=== PATIENT | female | born 1975 | race Caucasian/White ===

== ENCOUNTER 2016-12-16 09:41 | Day surgery (SDC) | payer SELFPAY ==
[~2016-12-16] VITALS: Ht 165.1 cm; Wt 103.4 kg
[~2016-12-16 09:41] MED LIST: ALBU17IN INH; VITA100066 PO
[2016-12-16] MEDS ORDERED: ACETAMINOPHEN 650 MG SUPP PR ONE (10:00)
[2016-12-16] MEDS ORDERED: LR 1,000 ML IV ONE (10:00)
[2016-12-16 10:17] LABS: MEAN CORPUSCULAR HEMOGLOBIN 30.2 pg (27.0-33.0); MEAN CORPUSCULAR VOLUME 91.4 fl (80.0-96.0); RED CELL DISTRIBUTION WIDTH 13.4 % (11.5-14.5); WHITE BLOOD COUNT 11.8 10^3/uL (4.0-10.0)
[2016-12-16 10:41] LABS: ANION GAP 5 MEQ/L (8-16); BLOOD UREA NITROGEN 8 MG/DL (7-18); CARBON DIOXIDE LEVEL 28 MEQ/L (21-32); CHLORIDE LEVEL 109 MEQ/L (98-107); CREATININE FOR GFR 0.92 MG/DL (0.55-1.02); GLOMERULAR FILTRATION RATE > 60.0 (>58); GLUCOSE, FASTING 121 MG/DL (70-105); POTASSIUM SERUM 4.1 MEQ/L (3.5-5.1); SODIUM LEVEL 142 MEQ/L (136-145)
[2016-12-16] MEDS ORDERED: ACETAMINOPHEN 650 MG SUPP As Ordered ONE (10:58)
[2016-12-16] MEDS ORDERED: METHYLENE BLUE 0.5% (5MG/ML) 10 ML AMP (PROVAYBLUE)(Q9968 PER 1MG) As Ordered ONE (10:58)
[2016-12-16] MEDS ORDERED: HYDROmorphone HCL 2 MG/ML 1ML VIAL (J1170) As Ordered ONE (11:55)
[2016-12-16] MEDS ORDERED: PROPOFOL 200 MG/20 ML VIAL As Ordered ONE ×2 (12:09→14:15)
[2016-12-16] MEDS ORDERED: LIDOCAINE 2% INJ 100 MG/5 ML SDV (FOR ANES.) As Ordered ONE (12:09)
[2016-12-16] MEDS ORDERED: fentaNYL 100 MCG/2 ML INJECTION (J3010) As Ordered ONE ×2 (12:09→14:17)
[2016-12-16] MEDS ORDERED: KETOROLAC 60 MG/2 ML VIAL (J1885) As Ordered ONE (12:09)
[2016-12-16] MEDS ORDERED: ROCURONIUM BROMIDE 50 MG/5 ML VIAL/SYRINGE As Ordered ONE (12:09)
[2016-12-16] MEDS ORDERED: dexameTHASONE 4 MG/ML 1ML VIAL (J1100) As Ordered ONE (12:09)
[2016-12-16] MEDS ORDERED: GLYCOPYRROLATE INJ 0.2 MG/ML 2 ML VIAL As Ordered ONE (12:19)
[2016-12-16] MEDS ORDERED: NEOSTIGMINE 10 MG/10 ML VIAL (J2710) As Ordered ONE (12:19)
[2016-12-16] MEDS ORDERED: PHENYLephrine HCL 500 MCG/5 ML (100MCG/ML) SYRINGE (J2370) As Ordered ONE (12:30)
[2016-12-16] MEDS ORDERED: IBUP80TA PO (14:44)
[2016-12-16] MEDS ORDERED: HYDROmorphone HCL 1 MG/ML SYRINGE (J1170) IV PRN (15:15)
[2016-12-16] MEDS ORDERED: LR 1,000 ML IV SCH (15:15)
[2016-12-16] MEDS ORDERED: fentaNYL 100 MCG/2 ML INJECTION (J3010) IV PRN (15:15)
[2016-12-16] MEDS ORDERED: PERCOCET 5MG/325MG TAB PO PRN ×2 (15:15)
[2016-12-16] MEDS ORDERED: ONDANSETRON 4MG/2ML VIAL (J2405) IV PRN (15:15)
[2016-12-16] MEDS ORDERED: METOCLOPRAMIDE INJ 10MG/2ML VIAL (J2765) IV PRN (15:15)
[2016-12-16] MEDS ORDERED: ONDANSETRON 4MG/2ML VIAL (J2405) As Ordered ONE (16:31)
[2016-12-16 16:57] LABS: HEP C VIRUS AB INDEX SOURCE PT 0.2 INDEX (0.0-0.8)
[2016-12-16 17:13] LABS: HIV SCREEN CENTAUR SOURCE NEGATIVE (NEGATIVE)
[2016-12-16 17:30] VITALS: BP 123/66
[2016-12-16] MEDS ORDERED: IBUPROFEN 800 MG TAB PO SCH (18:00)
--- NOTE | 2016-12-16 18:11 | RO ---
DATE OF PROCEDURE: 12/16/2016 Radha is a 41-year-old female who is status post a tubal ligation many years ago, now wants to have a tubal reversal as she wants to have a new . She is 41 years of age. The patient was counseled extensively as well as a option discussed including possibility of IVF. The patient does not want to go that route, but wants to proceed with tubal ligation. She is aware that even if the tubes are reversed, if she does get , there is a high likelihood of ectopic and even miscarriage due to the advanced maternal age. The patient is aware of all risks and still wants to proceed with the surgery. PREOPERATIVE DIAGNOSES: 1. 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 2. Advanced maternal age. POSTOPERATIVE DIAGNOSES: 1. 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 2. Advanced maternal age. 3. Short proximal tubes on both end. PROCEDURE: 1. Mini laparotomy. 2. Bilateral tubal reanastomosis. 3. Chromotubation. SURGEON: Ruben Ramos DO BUSINESS SERVICES ASSISTANT: Estelita Garcia ANESTHESIA: General. COMPLICATIONS: None. ESTIMATED BLOOD LOSS: Less than 50 mL PROCEDURE: After visiting with the patient in the holding area the informed consent was reaffirmed. The patient was then taken to the operating room where under general anesthesia she was placed in the dorsal lithotomy position. She was then draped and prepped. A HUMI II uterine manipulator was placed for manipulation and chromotubation. We then turned our attention to the abdomen, where approximately a 4-5 cm incision was made. This was carried down to the fascia. Fascia was incised in midline fashion and carried through laterally. Peritoneum identified. Peritoneal cavity entered bluntly. A Mobius skin retractor was placed. At this point, the fallopian tube, the uterus was inspected. Very short proximal fallopian tube was noted with the distal end segment approximately 1-2 inches. At this point, the mesosalpinx was identified. The mesosalpinx was then sutured using #2-0 Vicryl suture. We then cut the proximal end of the tube with the dye pushed through the cervix. We were able to see spillage out of the proximal tube. At this point the distal end was also caught way. We then used a guidewire that was passed through the fimbriated end then through the proximal end of the tube. With the guidewire left in place, I then placed a suture at the 12-o'clock, 6-o'clock and 3-o'clock and 9-o'clock position on the fallopian tube. These sutures were placed and cut. At this point, multiple other interrupted sutures were placed around the tube to create a second layer for good seal of the fallopian tube. Dye was again pushed through the fallopian tube and spillage was noted at the fimbriated end. We then turned our attention to the opposite side on the right. The tube was found to be even shorter on the right. Again with a similar process, the mesosalpinx was closed. The proximal end of the tube was cut to expose the tubal ostia. At this point the methylene blue dye was again pushed through and noticed to be spilling out of the proximal end. The distal end of the tube was transected to expose the lumen. At this point a guidewire was placed through that fimbriated end then to the proximal tip of tube and again in a similar fashion using #5-0 Vicryl sutures, the sutures was placed at 12-o'clock, 6-o'clock, 3-o'clock and 9-o'clock position and a series of interrupted sutures were placed around in a circumferential manner to seal the tube in a second layer. Again dye was pushed through the cervix and noted spillage in the abdominal cavity. Copiously irrigated with normal saline and suctioned out. No evidence of any injuries noted. At this point all instruments removed. The peritoneum was closed using #2-0 Vicryl. Fascia closed in two separate segment of #0 Vicryl sutures and the skin was reapproximated in subcuticular fashion using #3-0 Vicryl on a Valdemar needle. Steri-Strips placed. The patient tolerated procedure well. She was then transferred to recovery room in stable condition.
== END 2016-12-16 17:30 | disposition home or self-care (01) ==
LOC: M SDC 09:41
PROVIDERS: ATTEND Obstetrics & Gynecology
DX: Z31.0 Encounter for reversal of previous sterilization (principal); E16.2 Hypoglycemia, unspecified; L40.9 Psoriasis, unspecified; J45.909 Unspecified asthma, uncomplicated; Z88.5 Allergy status to narcotic agent; Z88.6 Allergy status to analgesic agent; Z72.0 Tobacco use; Z98.51 Tubal ligation status
CPT/HCPCS: 36415; 58350; 58770; 80048; 85027; 86803; 86850; 86900; 86901; 87340; 87389; C1769; J0690; J1100; J1170; J1885; J2370; J2405; J2710; J3010; Q9968